=== PATIENT | male | born 1990 | race Caucasian/White ===

== ENCOUNTER 2017-12-16 12:14 | Emergency (ER) | payer SELFPAY, OTHER ==
[2017-12-16] MEDS: diphenhydrAMINE 25 MG CAP PO (14:36)
[2017-12-16] MEDS: ACETAMINOPHEN 325 MG TAB PO (14:36)
== END 2017-12-16 14:48 | disposition home or self-care (01) ==
LOC: M ED 12:14
DX: J02.9 Acute pharyngitis, unspecified (principal)
CPT/HCPCS: 99282

== ENCOUNTER 2017-12-27 19:52 | Emergency (ER) | payer SELFPAY ==
[2017-12-28 00:40] LABS: INFLUENZA A AMPLIFICATION POSITIVE (NEGATIVE); INFLUENZA B AMPLIFICATION NEGATIVE (NEGATIVE)
[2017-12-28] MEDS: OSELTAMIVIR PHOSPHATE 75 MG CAP (TAMIFLU) PO (02:15)
== END 2017-12-28 02:27 | disposition home or self-care (01) ==
LOC: M ED 19:52
DX: J09.X2 Influenza due to identified novel influenza A virus with other respiratory manifestations (principal)
CPT/HCPCS: 87502

== ENCOUNTER 2018-03-11 11:59 | Emergency (ER) | payer OTHER, SELFPAY ==
[2018-03-11] MEDS: GI COCKTAIL 50ML BTL(HYOSCYAMINE/MAALOX/LIDOCAINE VISCOUS)(1:3:1) PO (12:39)
== END 2018-03-11 13:32 | disposition home or self-care (01) ==
LOC: M ED 11:59
DX: K21.9 Gastro-esophageal reflux disease without esophagitis (principal)
CPT/HCPCS: 99283

== ENCOUNTER 2018-07-24 18:22 | Emergency (ER) | payer OTHER ==
[2018-07-24] MEDS: ONDANSETRON 4MG/2ML VIAL (J2405) IV (19:45)
[2018-07-24] MEDS: NS 1,000 ML IV (19:46)
[2018-07-24 20:05] LABS: BASO # 0.1 10^3/uL (0.0-0.2); BASO % 0.6 % (0.0-1.0); EOS # 0.3 10^3/uL (0.0-0.50); EOS % 3.2 % (0.0-3.0); HEMOGLOBIN 16.4 g/dl (13.5-17.5); IMMATURE GRANULOCYTE % 0.3 % (0-3.0); LYMPH # 3.2 10^3/uL (1.5-6.5); LYMPH % 33.6 % (24.0-44.0); MEAN CORPUSCULAR HEMOGLOBIN 31.7 pg (27.0-33.0); MEAN CORPUSCULAR HGB CONC 34.9 g/dl (32.0-36.5); MEAN CORPUSCULAR VOLUME 90.9 fl (80.0-96.0); MONO # 0.7 10^3/uL (0.0-0.8); MONO % 6.9 % (0.0-5.0); NEUTROPHILS # 5.2 10^3/uL (1.8-7.7); NEUTROPHILS % 55.4 % (36.0-66.0); PLATELET COUNT, AUTOMATED 251 10^3/uL (150-450); RED BLOOD COUNT 5.17 10^6/uL (4.30-6.10); WHITE BLOOD COUNT 9.4 10^3/uL (4.0-10.0)
[2018-07-24 20:11] LABS: AMORPHOUS SEDIMENT RFX SMALL (NEGATIVE); KETONE, URINE AUTO RFX NEGATIVE (NEGATIVE); LEUKOCYTE ESTERASE UR AUTO RFX NEGATIVE (NEGATIVE); MUCUS, URINE RFX SMALL (NEGATIVE); NITRITE, URINE AUTO RFX NEGATIVE (NEGATIVE); RBC, URINE AUTO RFX 3 /HPF (0-3); SPECIFIC GRAVITY UR AUTO RFX 1.024 (1.002-1.035); SQUAM EPITHELIAL CELL UR AURFX 0 /HPF (0-6); WBC, URINE AUTO RFX 0 /HPF (0-3)
[2018-07-24 20:35] LABS: ALBUMIN/GLOBULIN RATIO 1.18 (1.00-1.93); ALKALINE PHOSPHATASE 68 U/L (45-117); ALT/SGPT 62 U/L (12-78); AMYLASE 68 U/L (25-115); ANION GAP 6 MEQ/L (8-16); AST/SGOT 27 U/L (7-37); BILIRUBIN,DIRECT < 0.1 MG/DL (0.0-0.2); BILIRUBIN,TOTAL 0.4 MG/DL (0.2-1.0); BLOOD UREA NITROGEN 16 MG/DL (7-18); CALCIUM LEVEL 9.2 MG/DL (8.5-10.1); CARBON DIOXIDE LEVEL 30 MEQ/L (21-32); CHLORIDE LEVEL 107 MEQ/L (98-107); GLOMERULAR FILTRATION RATE > 60.0 (>60); GLUCOSE, FASTING 77 MG/DL (70-100); LIPASE 129 U/L (73-393); POTASSIUM SERUM 4.2 MEQ/L (3.5-5.1); SODIUM LEVEL 143 MEQ/L (136-145); TOTAL PROTEIN 7.4 GM/DL (6.4-8.2)
== END 2018-07-24 20:55 | disposition home or self-care (01) ==
LOC: M ED 18:22
DX: R11.2 Nausea with vomiting, unspecified (principal); R19.7 Diarrhea, unspecified
CPT/HCPCS: J2405

== ENCOUNTER 2018-09-05 09:28 | Emergency (ER) | payer OTHER | END 2018-09-05 10:55 | disposition home or self-care (01) | LOC: M ED 09:28 | DX: J02.0 Streptococcal pharyngitis (principal); K21.9 Gastro-esophageal reflux disease without esophagitis | CPT/HCPCS: 71046 ==

== ENCOUNTER 2020-01-14 11:42 | Emergency (ER) | payer OTHER ==
[~2020-01-14] VITALS: Ht 177.8 cm; Wt 124.1 kg
[2020-01-14 11:42] VITALS: BP 136/79
[~2020-01-14 11:42] MED LIST: AMOX500C PO; BENT10CA PO; OMEP40CA97 PO; OSEL75CA PO; ZOFR4TAB14 PO
== END 2020-01-14 12:41 | disposition home or self-care (01) ==
LOC: M ED 11:42
DX: J06.9 Acute upper respiratory infection, unspecified (principal); K21.9 Gastro-esophageal reflux disease without esophagitis

== ENCOUNTER 2020-07-21 16:55 | Emergency (ER) | payer OTHER ==
[~2020-07-21] VITALS: Ht 180.3 cm; Wt 134.5 kg
[2020-07-21 16:56] VITALS: BP 129/78
== END 2020-07-21 18:42 | disposition home or self-care (01) ==
LOC: M ED 16:55
DX: Z11.59 Encounter for screening for other viral diseases (principal); J34.89 Other specified disorders of nose and nasal sinuses; R19.7 Diarrhea, unspecified; E66.9 Obesity, unspecified; K21.9 Gastro-esophageal reflux disease without esophagitis
CPT/HCPCS: 99282; U0002

== ENCOUNTER 2020-10-07 13:53 | Emergency (ER) | payer OTHER ==
[~2020-10-07] VITALS: Ht 180.3 cm; Wt 136.4 kg
[2020-10-07 13:53] VITALS: BP 130/83
== END 2020-10-07 23:44 | disposition home or self-care (01) ==
LOC: M ED 13:53
DX: J06.9 Acute upper respiratory infection, unspecified (principal)

== ENCOUNTER 2020-11-18 15:47 | Emergency (ER) | payer OTHER ==
[~2020-11-18] VITALS: Ht 180.3 cm; Wt 140.6 kg
[2020-11-18 19:38] VITALS: BP 127/68
== END 2020-11-18 19:41 | disposition home or self-care (01) ==
LOC: M ED 15:47
DX: R09.82 Postnasal drip (principal); K21.9 Gastro-esophageal reflux disease without esophagitis

== ENCOUNTER 2021-01-14 16:30 | Emergency (ER) | payer OTHER ==
[~2021-01-14] VITALS: Ht 180.3 cm; Wt 145.7 kg
--- OUTSIDE RECORDS SUMMARY | 2021-01-14 16:37 | CCD ---
Author Author Jostin Stephensneelle Organization Unknown Address [address] [address] Phone Care Team Providers Care Knife Grinder Name Role Phone Colin Stephens PCP Allergies, Adverse Reactions, Alerts No Data in Section Problem List Concept Problem Description Status Start Date Created Date Resolv ed Date Snomed Code F43.9 Unspecified Trauma- and Stressor-Related Disorder Acti ve 09/20/2019 09/20/2019 F33.1 Major Depressive Disorder, Recurrent episode, Moderate Active 12/27/2020 F12.19 Cannabis abuse with unspecified cannabis-induced disor nerissa Active 12/27/2020 F10.188 Alcohol abuse with other alcohol-induced disorder Active 12/27/2020 Medications No Data in Section Social History Social History Element Description Concept Effective Date Smoking Status Unknown if ever smoked [id number] Immunizations No Data in Section Vital Signs No Data in Section Procedures Date Concept Id Description Targeted Site Concept Targeted Site Concept Type 12/27/2020 94225 Extended Individual Psychotherapy - 45 min CPT Patient has no history of implantable de vices Encounters Encounter Start Date End Date Encounter Type Description Diagnosis Di agnosis Desc Location Author First Name Author Last Name Npid Taxonomy Cod e Taxonomy Desc Phone Number Location Addr1 Location Addr2 Location [facility] Location [facility] [id number] 12/27/2020 12/27/2020 73172 Extended Individual Psych otherapy - 45 min F43.9 Reaction to severe stress, unspecified [facility] [phone] [id number] Art Therapist [phone] [address] [address] Plan of Treatment No Data in Section Lab Results No Data in Section Instructions No Data in Section Insurance Providers Insurance Id Policy Effective Date Policy Thru Date Company N [employer] [id number] 2019 DUNCAN - MEDICA ID MANAGED
--- OUTSIDE RECORDS SUMMARY | 2021-01-14 16:38 | CCD ---
Author Author [facility] Organization [facility] Address Unknown Phone Unavailable Care Team Providers Care Cash Accounting Clerk Name Role Phone [facility] Un[facility] Unavailable Colin Stephens Unavailable EGORHO, F CAREY FPMHNP Unavailable Unavailable EGORHO, F CAREY FPMHNP Unavailable Unavailable EGORHO, F CAREY FPMHNP Unavailable Unavailable EGORHO, F CAREY FPMHNP Unavailable Unavailable EGORHO, F CAREY FPMHNP Unavailable Unavailable EGORHO, F CAREY FPMHNP Unavailable Unavailable Re-disclosure Warning The records that you are about to access may contain information from federally-assisted alcohol or drug abuse programs. If such information is present, then the following federally mandated warning applies: This information has been disclosed to you from records protected by federal confidentiality rules (42 CFR part 2). The federal rules prohibit you from making any further disclosure of this information unless further disclosure is expressly permitted by the written consent of the person to whom it pertains or as otherwise permitted by 42 CFR part 2. A general authorization for the release of medical or other information is NOT sufficient for this purpose. The Federal rules restrict any use of the information to criminally investigate or prosecute any alcohol or drug abuse patient.The records that you are about to access may contain highly sensitive health information, the redisclosure of which is protected by Article 27-F of the [facility] Public Health law. If you continue you may have access to information: Regarding HIV / AIDS; Provided by facilities licensed or operated by the [facility] Office of Mental Health; or Provided by the [facility] Office for People With Developmental Disabilities. If such information is present, then the following [facility] mandated warning applies: This information has been disclosed to you from confidential records which are protected by state law. State law prohibits you from making any further disclosure of this information without the specific written consent of the person to whom it pertains, or as otherwise permitted by law. Any unauthorized further disclosure in violation of state law may result in a fine or prison sentence or both. A general authorization for the release of medical or other information is NOT sufficient authorization for further disc losure. Encounters Encounter Providers Location Date Indications Data Source(s ) Extended Individual Psychotherapy - 45 min Attender: [facility] 12/27/2020 02:30:00 AM EST - 12/27/2020 02:30:00 AM EST [facility] ([facility]) Attender: Colin Stephens 12/27/2020 12:00:00 AM EST [facility] ([facility]) Extended Individual Psychotherapy - 45 min Attender: [facility] 11/01/2020 05:00:00 AM EST - 11/01/2020 05:00:00 AM EST [facility] ([facility]) Attender: Mihirscelle Stephens 11/01/2020 12:00:00 AM EST [facility] ([facility]) Extended Individual Psychotherapy - 45 min Attender: [facility] 09/20/2020 10:00:00 AM EDT - 09/20/2020 10:00:00 AM EDT [facility] ([facility]) Attender: Colin Stephens 09/20/2020 12:00:00 AM EDT [facility] ([facility]) Psychiatric Diagnostic Evaluation with Medical Service s [facility] 09/06/2020 03:00:00 AM EDT - 09/06/2020 03:00:00 AM EDT [facility] ([facility]) Attender: CAREY [facility] 09/06/2020 12:00: 00 AM EDT [facility] ([facility]) Extended Individual Psychotherapy - 45 min Attender: [facility] 08/23/2020 02:00:00 AM EDT - 08/23/2020 02:00:00 AM EDT [facility] ([facility]) Attender: Monet Kat 08/23/2020 12:00:00 AM EDT [facility] ([facility]) Attender: Monet Kat 08/08/2020 12:00:00 AM EDT [facility] ([facility]) Extended Individual Psychotherapy - 45 min Attender: [facility] 08/07/2020 01:45:00 AM EDT - 08/07/2020 01:45:00 AM EDT [facility] ([facility]) TEMPMHCTelemed 30" [facility] 05:30:00 AM EDT - 07/23/2020 05:30:00 AM EDT [facility] ([facility]) Attender: Colin Stephens 07/23/2020 12:00:00 AM EDT [facility] ([facility]) Outpatient Attender: RENUKA [facility] 07/08/2020 03:09:00 PM EDT [facility] [id number]"[facility] 05:00:00 AM EDT - 04/23/2020 05:00:00 AM EDT [facility] ([facility]) Attender: Colin Stephens 04/23/2020 12:00:00 AM EDT [facility] ([facility]) [id number]"Psychotherapy [facility] 04/12/2020 10:15:00 AM EDT - 04/12/2020 10:15:00 AM EDT [facility] ([facility]) [facility] 04/12/2020 12:00:00 AM EDT [facility] ([facility]) TEMPMHCTelemed 30" [facility]2020 04:00:00 AM EDT - 03/19/2020 04:00:00 AM EDT [facility] ([facility] 12:00:00 AM EDT [facility] ([facility]) TEMPMHCTelemed 30" [facility]/18/2020 12:30:00 PM EDT - 03/18/2020 12:30:00 PM EDT [facility] ([facility] 03/18/2020 12:00:00 AM EDT [facility] ([facility]) TEMPMHCTelemed 30" Psych[facility]/04/2020 03:00:00 AM EDT - 03/04/2020 03:00:00 AM EDT [facility] ([facility] 03/04/2020 12:00:00 AM EDT [facility] ([facility]) Outpatient Att[facility]: [facility] 02/20/2020 12:49:01 PM EDT [facility] [id number]"Psychotherapy [facility] 02/16/2020 02:00:00 AM EDT - 02/16/2020 02:00:00 AM EDT [facility] ([facility]) Attender: Colin Stephens 02/16/2020 12:00:00 AM EDT [facility] ([facility]) Extended Individual Psychotherapy - 45 min [facility] 01/25/2020 08:30:00 AM EST - 01/25/2020 08:30:00 AM EST [facility] ([facility]) Attender: Colin Stephens 01/25/2020 12:00:00 AM EST [facility] ([facility]) Extended Individual Psychotherapy - 45 min [facility] 01/10/2020 02:45:00 AM EST - 01/10/2020 02:45:00 AM EST [facility] ([facility]) Attender: Mihirscelle Stephens 01/10/2020 12:00:00 AM EST [facility] ([facility]) Extended Individual Psychotherapy - 45 min [facility] 12/27/2019 09:00:00 AM EST - 12/27/2019 09:00:00 AM EST [facility] ([facility]) Attender: Colin Stephens 12/27/2019 12:00:00 AM EST [facility] ([facility]) Outpatient Attender: [facility] 12/05/2019 11:08:00 AM EST [facility] Functional Status Insurance Providers Payer name Policy type / Coverage type Policy ID Covered alliance party ID Covered alliance party's relationship to lu Policy Lu Plan Information DUNCAN [id number] SP [id number] [place] [id number] S [id number] MEDICAID [id number] SP [id number] SELF PAY ONLY [id number] SP [id number] SELF PAY UNAVAILABLE SP UNAVAILA BLE D Managed Care [place] P [id number] S [id number] Medicaid Dental S [id number] DUNCAN [id number] 18 [id number] 500 MEDICAID [id number] MEDICAID [id number] SELF-PAY [id number] S [id number] BLUE CROSS SNYDER PLAN [id number] SP [id number] O BLUE [id number] SP [id number] Problems, Conditions, and Diagnoses Code Display Name Description Problem Type Effective Dates Data Source(s) F10.188 Alcohol abuse with other alcohol-induced disorder Alcohol abuse with other alcohol-induced disorder Condition 12/27/2020 12:00:00 AM EST [facility] ([facility]) F12.19 Cannabis abuse with unspecified cannabis -induced disorder Cannabis abuse with unspecified cannabis-induced disorder Condition 12/27/2020 12:00: 00 AM EST [facility] ([facility]) F33.1 Major depressive disorder, recurrent, mo derate Major Depressive Disorder, Recurrent episode, Moderate Condition 12/27/2020 12:00:00 AM EST [facility] ([facility]) F43.9 Reaction to severe stress, unspecified U nspecified Trauma- and Stressor- Related Disorder Condition 12/27/2020 12:00:00 AM EST [facility] ([facility]) F41.1 Generalized anxiety disorder Generalized Anxiety Disor nerissa Condition 08/23/2020 12:00:00 AM EDT [facility] ([facility]) F43.9 Reaction to severe stress, unspecified U nspecified Trauma- and Stressor- Related Disorder Condition 08/23/2020 12:00:00 AM EDT [facility] ([facility]) F41.9 Anxiety disorder, unspecified Unspecified Anxiety Diso rder Condition 08/23/2020 12:00:00 AM EDT [facility] ([facility]) Surgeries/Procedures Procedure Description Date Indications Data Source(s) Extended Individual Psychotherapy - 45 min 12/27/2020 12:00:00 AM EST - 12/27/2020 12:00:00 AM EST [facility] ([facility]) Extended Individual Psychotherapy - 45 min 1 12:00:00 AM EST [facility] ([facility]) Extended Individual Psychotherapy - 45 min 11/01/2020 12:00:00 AM EST - 11/01/2020 12:00:00 AM EST [facility] ([facility]) Extended Individual Psychotherapy - 45 min 0 12:00:00 AM EST [facility] ([facility]) Extended Individual Psychotherapy - 45 min 09/20/2020 12:00:00 AM EDT - 09/20/2020 12:00:00 AM EDT [facility] ([facility]) Extended Individual Psychotherapy - 45 min 0 12:00:00 AM EDT [facility] ([facility]) Psychiatric Diagnostic Evaluation with Medical Services 09/06/2020 12:00:00 AM EDT - 09/06/2020 12:00:00 AM EDT [facility] ([facility]) Psychiatric Diagnostic Evaluation with Medical Services 09/06/2020 12:00:00 AM EDT [facility] ([facility]) Extended Individual Psychotherapy - 45 min 08/23/2020 12:00:00 AM EDT - 08/23/2020 12:00:00 AM EDT [facility] ([facility]) Extended Individual Psychotherapy - 45 min 0 12:00:00 AM EDT [facility] ([facility]) Extended Individual Psychotherapy - 45 min 08/08/2020 12:00:00 AM EDT - 08/08/2020 12:00:00 AM EDT [facility] ([facility]) Extended Individual Psychotherapy - 45 min 0 12:00:00 AM EDT [facility] ([facility]) TEMPMHCTelemed 30" Psychotherapy 020 12:00:00 AM EDT - 07/23/2020 12:00:00 AM EDT [facility] ([facility]) TEMPMHCTelemed 30" Psychotherapy 07/23/2020 12:00:00 A M EDT [facility] ([facility]) [id number]"Psychotherapy 0 12:00:00 AM EDT - 04/23/2020 12:00:00 AM EDT [facility] ([facility]) [id number]"Psychotherapy 04/23/2020 12:00:00 AM EDT [facility] ([facility]) [id number]"Psychotherapy 0 12:00:00 AM EDT - 04/12/2020 12:00:00 AM EDT [facility] ([facility]) [id number]"Psychotherapy 04/12/2020 12:00:00 AM EDT [facility] ([facility]) TEMPMHCTelemed 30" Psychotherapy 020 12:00:00 AM EDT - 03/19/2020 12:00:00 AM EDT [facility] ([facility]) TEMPMHCTelemed 30" Psychotherapy 03/19/2020 12:00:00 A M EDT [facility] ([facility]) TEMPMHCTelemed 30" Psychotherapy 020 12:00:00 AM EDT - 03/18/2020 12:00:00 AM EDT [facility] ([facility]) TEMPMHCTelemed 30" Psychotherapy 03/18/2020 12:00:00 A M EDT [facility] ([facility]) TEMPMHCTelemed 30" Psychotherapy 020 12:00:00 AM EDT - 03/04/2020 12:00:00 AM EDT [facility] ([facility]) TEMPMHCTelemed 30" Psychotherapy 03/04/2020 12:00:00 A M EDT [facility] ([facility]) [id number]"Psychotherapy 0 12:00:00 AM EDT - 02/16/2020 12:00:00 AM EDT [facility] ([facility]) [id number]"Psychotherapy 02/16/2020 12:00:00 AM EDT [facility] ([facility]) Extended Individual Psychotherapy - 45 min 01/25/2020 12:00:00 AM EST - 01/25/2020 12:00:00 AM EST [facility] ([facility]) Extended Individual Psychotherapy - 45 min 0 12:00:00 AM EST [facility] ([facility]) Extended Individual Psychotherapy - 45 min 01/10/2020 12:00:00 AM EST - 01/10/2020 12:00:00 AM EST [facility] ([facility]) Extended Individual Psychotherapy - 45 min 0 12:00:00 AM EST [facility] ([facility]) Extended Individual Psychotherapy - 45 min 12/27/2019 12:00:00 AM EST - 12/27/2019 12:00:00 AM EST [facility] ([facility]) Extended Individual Psychotherapy - 45 min 0 12:00:00 AM EST [facility] ([facility]) Social History Code Duration Value Status Description Data Source(s ) Smoking 12/27/2020 12:00:00 AM EST Unknown if ever smoked comp leted Unknown if ever smoked [facility] ([facility]) Smoking 11/01/2020 12:00:00 AM EST Unknown if ever smoked comp leted Unknown if ever smoked [facility] ([facility]) Smoking 09/20/2020 12:00:00 AM EDT Unknown if ever smoked comp leted Unknown if ever smoked [facility] ([facility]) Smoking 09/06/2020 12:00:00 AM EDT Unknown if ever smoked comp leted Unknown if ever smoked [facility] ([facility]) Smoking 08/23/2020 12:00:00 AM EDT Unknown if ever smoked comp leted Unknown if ever smoked [facility] ([facility]) Smoking 08/08/2020 12:00:00 AM EDT Unknown if ever smoked comp leted Unknown if ever smoked [facility] ([facility]) Smoking 07/23/2020 12:00:00 AM EDT Unknown if ever smoked comp leted Unknown if ever smoked [facility] ([facility]) Smoking 04/23/2020 12:00:00 AM EDT Unknown if ever smoked comp leted Unknown if ever smoked [facility] ([facility]) Smoking 04/12/2020 12:00:00 AM EDT Unknown if ever smoked comp leted Unknown if ever smoked [facility] ([facility]) Smoking 03/19/2020 12:00:00 AM EDT Unknown if ever smoked comp leted Unknown if ever smoked [facility] ([facility]) Smoking 03/18/2020 12:00:00 AM EDT Unknown if ever smoked comp leted Unknown if ever smoked [facility] ([facility]) Smoking 03/04/2020 12:00:00 AM EDT Unknown if ever smoked comp leted Unknown if ever smoked [facility] ([facility]) Smoking 02/16/2020 12:00:00 AM EDT Unknown if ever smoked comp leted Unknown if ever smoked [facility] ([facility]) Smoking 01/25/2020 12:00:00 AM EST Unknown if ever smoked comp leted Unknown if ever smoked [facility] ([facility]) Smoking 01/10/2020 12:00:00 AM EST Unknown if ever smoked comp leted Unknown if ever smoked [facility] ([facility]) Smoking 12/27/2019 12:00:00 AM EST Unknown if ever smoked comp leted Unknown if ever smoked [facility] ([facility]) Vital Signs ID Date Data Source UNK Name Value Range Interpretation Code Description Data Source(s) Respiratory rate 14 min Normal (applies to non-numeric results) 14 min [facility] ([facility]) Body height --lying 69 min Normal (applies to non-nume raeann results) 69 min [facility] ([facility]) Diastolic blood pressure 69 mm[Hg] Normal (applies to non-numeric results) 69 mm[Hg] [facility] ([facility]) Systolic blood pressure 117 mm[Hg] Normal (applies t o non-numeric results) 117 mm[Hg] [facility] ([facility]) Body mass index (BMI) [Ratio] 39.60 kg/m2 No rmal (applies to non-numeric results) 39.60 kg/m2 [facility] ([facility]) Body weight Measured 276.00 lbs Normal (applies to n on-numeric results) 276.00 lbs [facility] ([facility]) Body height 70.00 in Normal (applies to non-numeric resu lts) 70.00 in [facility]
[2021-01-14] MEDS: ALBUTEROL 90 MCG/ACT 8GM HFA INHALER INH SCH ×3 (17:10→17:48)
--- NOTE | 2021-01-14 17:34 | REP ---
INDICATION: DYSPNEA/COUGH. COMPARISON: Comparison chest x-ray September 05, 2018. TECHNIQUE: Portable upright AP chest radiograph. FINDINGS: The lungs are well inflated and free of infiltrate. Pleural angles are sharp. Heart size is normal. Pulmonary vasculature is not increased. An azygos lobe is noted incidentally. IMPRESSION: No active disease. <Electronically signed by Washington Payton > 01/14/21 [id number]
--- OUTSIDE RECORDS SUMMARY | 2021-01-14 17:34 | CCD ---
Author Author [facility] Address Unknown Phone Unavailable Care Team Providers Care Bindery Technician Name Role Phone [phone] Un[facility] Unavailable Colin Stephens Unavailable EGORHO, [...] is protected by Article 27-F of the [facility] Public Health law. If you continue you may have access to information: Regarding HIV / AIDS; Provided by facilities licensed or operated by the [facility] Office of Mental Health; or Provided by the [facility] Office for People With Developmental Disabilities. If such information is present, then the following [facility] mandated warning applies: This information has [...] law may result in a fine or custodial sentence or both. A general authorization for the release of medical or other information is NOT sufficient authorization for further disc losure. Encounters Encounter Providers Location Date Indications Data Source(s ) Extended Individual Psychotherapy - 45 min Attender: [facility] 12/27/2020 02:30:00 AM EST - 12/27/2020 02:30:00 AM EST [facility] ([facility]) Attender: Colin Stephens 12/27/2020 12:00:00 AM EST [facility] ([facility]) Extended Individual Psychotherapy - 45 min Attender: [facility] 11/01/2020 05:00:00 AM EST - 11/01/2020 05:00:00 AM EST [facility] ([facility]) Attender: Mihirmoelle Stephens 11/01/2020 12:00:00 AM EST [facility] ([facility]) Extended Individual Psychotherapy - 45 min Attender: [facility] 09/20/2020 10:00:00 AM EDT - 09/20/2020 10:00:00 AM EDT [facility] ([facility]) Attender: Colin Stephens 09/20/2020 12:00:00 AM EDT [facility] ([facility]) Psychiatric Diagnostic Evaluation with Medical Service s [facility] 03:00:00 AM EDT - 09/06/2020 03:00:00 AM EDT [facility] ([facility]) [facility] 12:00: 00 AM EDT [facility] ([facility]) [facility] - [facility] 02:00:00 AM EDT - 08/23/2020 02:00:00 AM EDT [facility] 12:00:00 AM EDT [facility]) Attender: Monet aKt 08/08/2020 12:00:00 AM EDT [facility] ([facility]) Extended Individual Psychotherapy - 45 min Attender: [facility] 08/07/2020 01:45:00 AM EDT - 08/07/2020 01:45:00 AM EDT [facility] ([facility]) TEMPMHCTelemed 30" [facility] 07/[facility]/2020 05:30:00 AM EDT - 07/23/2020 05:30:00 AM EDT [facility] ([facility]) Attender: Monet Kat 07/23/2020 12:00:00 AM EDT [facility] ([facility]) Outpatient Attender: RENUKA [facility] 07/08/2020 03:09:[address] [facility] [id number]"Psych[facility] 05:00:00 AM EDT - 04/23/2020 05:00:00 AM EDT [facility] ([facility]) Attender: Colin Stephens 04/23/2020 12:00:00 AM EDT [facility] ([facility]) [id number]"[facility] 04/12/2020 10:15:00 AM EDT - 04/12/2020 10:15:00 AM EDT [facility] ([facility]) [facility] 04/12/2020 12:00:00 AM EDT [facility] ([facility]) TEMPMHCTelemed 30" Psych[facility] 03/19/2020 04:00:00 AM EDT - 03/19/2020 04:00:00 AM EDT [facility] 12:00:00 AM EDT [facility] ([facility]) TEMPMHCTelemed 30" [facility] 03/18/2020 12:30:00 PM EDT - 03/18/2020 12:30:00 PM EDT [facility] ([facility] 03/18/2020 12:00:00 AM EDT [facility] ([facility]) TEMPMHCTelemed 30" Psych[facility] 03/04/2020 03:00:00 AM EDT - 03/04/2020 03:00:00 AM EDT [facility] ([facility] 03/04/2020 12:00:00 AM EDT [facility] ([facility]) [facility] 02/20/[facility] 12:49:[address] [facility] [id number]"Psychotherapy [facility] 02/16/2020 02:00:00 AM EDT - 02/16/2020 02:00:00 AM EDT [facility] ([facility]) Attender: Colin Stephens 02/16/2020 12:00:00 AM EDT [facility] ([facility]) Extended Individual Psychotherapy - 45 min [facility] 01/25/2020 08:30:00 AM EST - 01/25/2020 08:30:00 AM EST [facility] ([facility]) Attender: Colin Stephens 01/25/2020 12:00:00 AM EST [facility] ([facility]) Extended Individual Psychotherapy - 45 min [facility] 01/10/2020 02:45:00 AM EST - 01/10/2020 02:45:00 AM EST [facility] 01/10/2020 12:00:00 AM EST [facility] ([facility]) Extended Individual Psychotherapy - 45 min [facility] 12/27/2019 09:00:00 AM EST - 12/27/2019 09:00:00 AM EST [facility] ([facility]) Attender: Colin Stephens 12/27/2019 12:00:00 AM EST [facility] ([facility]) Outpatient Attender: RENUKA [facility] 12/05/2019 11:08:[address] [facility] Functional Status Insurance Providers Payer name Policy type / Coverage type Policy ID Covered constitution party ID Covered constitution party's relationship to lu Policy Lu Plan Information FAHEEM [id number] SP [id number] [place] [id number] S [id number] MEDICAID [id number] SP [id number] SELF PAY ONLY [id number] SP [id number] SELF PAY UNAVAILABLE SP UNAVAILA BLE D Managed Care Faheem P [id number] S [id number] Medicaid Dental S [id number] S [id number] FAHEEM [id number] 18 [id number] MEDICAID [id number] S [id number] MEDICAID [id number] S [id number] SELF-PAY [id number] S [id number] [employer] [id number] SP [id number] O BLUE [id number] SP [id number] Problems, Conditions, and Diagnoses Code Display Name Description Problem Type Effective Dates Data Source(s) F10.188 Alcohol abuse with other alcohol-induced disorder Alcohol abuse with other alcohol-induced disorder Condition 12/27/2020 12:00:00 AM EST [facility] ([facility]) F12.19 Cannabis abuse with unspecified cannabis -induced disorder Cannabis abuse with unspecified cannabis-induced disorder Condition 12/27/2020 12:00: 00 AM EST [facility] ([facility]) F33.1 Major depressive disorder, recurrent, mo derate Major Depressive Disorder, Recurrent episode, Moderate Condition 12/27/2020 12:00:00 AM EST [facility] ([facility]) F43.9 Reaction to severe stress, unspecified U nspecified Trauma- and Stressor- Related Disorder Condition 12/27/2020 12:00:00 AM EST [facility] ([facility]) F41.1 Generalized anxiety disorder Generalized Anxiety Disor nerissa Condition 08/23/2020 12:00:00 AM EDT [facility] ([facility]) F43.9 Reaction to severe stress, unspecified U nspecified Trauma- and Stressor- Related Disorder Condition 08/23/2020 12:00:00 AM EDT [facility] ([facility]) F41.9 Anxiety disorder, unspecified Unspecified Anxiety Diso rder Condition 08/23/2020 12:00:00 AM EDT [facility] ([facility]) Surgeries/Procedures Procedure Description Date Indications Data Source(s) Extended Individual Psychotherapy - 45 min 12/27/2020 12:00:00 AM EST - 12/27/2020 12:00:00 AM EST [facility] ([facility]) Extended Individual Psychotherapy - 45 min 1 12:00:00 AM EST [facility] ([facility]) Extended Individual Psychotherapy - 45 min 11/01/2020 12:00:00 AM EST - 11/01/2020 12:00:00 AM EST [facility] ([facility]) Extended Individual Psychotherapy - 45 min 0 12:00:00 AM EST [facility] ([facility]) Extended Individual Psychotherapy - 45 min 09/20/2020 12:00:00 AM EDT - 09/20/2020 12:00:00 AM EDT [facility] ([facility]) Extended Individual Psychotherapy - 45 min 0 12:00:00 AM EDT [facility] ([facility]) Psychiatric Diagnostic Evaluation with Medical Services 09/06/2020 12:00:00 AM EDT - 09/06/2020 12:00:00 AM EDT [facility] ([facility]) Psychiatric Diagnostic Evaluation with Medical Services 09/06/2020 12:00:00 AM EDT [facility] ([facility]) Extended Individual Psychotherapy - 45 min 08/23/2020 12:00:00 AM EDT - 08/23/2020 12:00:00 AM EDT [facility] ([facility]) Extended Individual Psychotherapy - 45 min 0 12:00:00 AM EDT [facility] ([facility]) Extended Individual Psychotherapy - 45 min 08/08/2020 12:00:00 AM EDT - 08/08/2020 12:00:00 AM EDT [facility] ([facility]) Extended Individual Psychotherapy - 45 min 0 12:00:00 AM EDT [facility] ([facility]) TEMPMHCTelemed 30" Psychotherapy 020 12:00:00 AM EDT - 07/23/2020 12:00:00 AM EDT [facility] ([facility]) TEMPMHCTelemed 30" Psychotherapy 07/23/2020 12:00:00 A M EDT [facility] ([facility]) [id number]"Psychotherapy 0 12:00:00 AM EDT - 04/23/2020 12:00:00 AM EDT [facility] ([facility]) [id number]"Psychotherapy 04/23/2020 12:00:00 AM EDT [facility] ([facility]) [id number]"Psychotherapy 0 12:00:00 AM EDT - 04/12/2020 12:00:00 AM EDT [facility] ([facility]) [id number]"Psychotherapy 04/12/2020 12:00:00 AM EDT [facility] ([facility]) TEMPMHCTelemed 30" Psychotherapy 020 12:00:00 AM EDT - 03/19/2020 12:00:00 AM EDT [facility] ([facility]) TEMPMHCTelemed 30" Psychotherapy 03/19/2020 12:00:00 A M EDT [facility] ([facility]) TEMPMHCTelemed 30" Psychotherapy 020 12:00:00 AM EDT - 03/18/2020 12:00:00 AM EDT [facility] ([facility]) TEMPMHCTelemed 30" Psychotherapy 03/18/2020 12:00:00 A M EDT [facility] ([facility]) TEMPMHCTelemed 30" Psychotherapy 020 12:00:00 AM EDT - 03/04/2020 12:00:00 AM EDT [facility] ([facility]) TEMPMHCTelemed 30" Psychotherapy 03/04/2020 12:00:00 A M EDT [facility] ([facility]) [id number]"Psychotherapy 0 12:00:00 AM EDT - 02/16/2020 12:00:00 AM EDT [facility] ([facility]) [id number]"Psychotherapy 02/16/2020 12:00:00 AM EDT [facility] ([facility]) Extended Individual Psychotherapy - 45 min 01/25/2020 12:00:00 AM EST - 01/25/2020 12:00:00 AM EST [facility] ([facility]) Extended Individual Psychotherapy - 45 min 0 12:00:00 AM EST [facility] ([facility]) Extended Individual Psychotherapy - 45 min 01/10/2020 12:00:00 AM EST - 01/10/2020 12:00:00 AM EST [facility] ([facility]) Extended Individual Psychotherapy - 45 min 0 12:00:00 AM EST [facility] ([facility]) Extended Individual Psychotherapy - 45 min 12/27/2019 12:00:00 AM EST - 12/27/2019 12:00:00 AM EST [facility] ([facility]) Extended Individual Psychotherapy - 45 min 0 12:00:00 AM EST [facility] ([facility]) Social History Code Duration Value Status Description Data Source(s ) Smoking 12/27/2020 12:00:00 AM EST Unknown if ever smoked comp leted Unknown if ever smoked [facility] ([facility]) Smoking 11/01/2020 12:00:00 AM EST Unknown if ever smoked comp leted Unknown if ever smoked [facility] ([facility]) Smoking 09/20/2020 12:00:00 AM EDT Unknown if ever smoked comp leted Unknown if ever smoked [facility] ([facility]) Smoking 09/06/2020 12:00:00 AM EDT Unknown if ever smoked comp leted Unknown if ever smoked [facility] ([facility]) Smoking 08/23/2020 12:00:00 AM EDT Unknown if ever smoked comp leted Unknown if ever smoked [facility] ([facility]) Smoking 08/08/2020 12:00:00 AM EDT Unknown if ever smoked comp leted Unknown if ever smoked [facility] ([facility]) Smoking 07/23/2020 12:00:00 AM EDT Unknown if ever smoked comp leted Unknown if ever smoked [facility] ([facility]) Smoking 04/23/2020 12:00:00 AM EDT Unknown if ever smoked comp leted Unknown if ever smoked [facility] ([facility]) Smoking 04/12/2020 12:00:00 AM EDT Unknown if ever smoked comp leted Unknown if ever smoked [facility] ([facility]) Smoking 03/19/2020 12:00:00 AM EDT Unknown if ever smoked comp leted Unknown if ever smoked [facility] ([facility]) Smoking 03/18/2020 12:00:00 AM EDT Unknown if ever smoked comp leted Unknown if ever smoked [facility] ([facility]) Smoking 03/04/2020 12:00:00 AM EDT Unknown if ever smoked comp leted Unknown if ever smoked [facility] ([facility]) Smoking 02/16/2020 12:00:00 AM EDT Unknown if ever smoked comp leted Unknown if ever smoked [facility] ([facility]) Smoking 01/25/2020 12:00:00 AM EST Unknown if ever smoked comp leted Unknown if ever smoked [facility] ([facility]) Smoking 01/10/2020 12:00:00 AM EST Unknown if ever smoked comp leted Unknown if ever smoked [facility] ([facility]) Smoking 12/27/2019 12:00:00 AM EST Unknown if ever smoked comp leted Unknown if ever smoked [facility] ([facility]) Vital Signs ID Date Data Source UNK Name Value Range Interpretation Code Description Data Source(s) Respiratory rate 14 min Normal (applies to non-numeric results) 14 min [facility] ([facility]) Body height --lying 69 min Normal (applies to non-nume raeann results) 69 min [facility] ([facility]) Diastolic blood pressure 69 mm[Hg] Normal (applies to non-numeric results) 69 mm[Hg] [facility] ([facility]) Systolic blood pressure 117 mm[Hg] Normal (applies t o non-numeric results) 117 mm[Hg] [facility] ([facility]) Body mass index (BMI) [Ratio] 39.60 kg/m2 No rmal (applies to non-numeric results) 39.60 kg/m2 [facility] ([facility]) Body weight Measured 276.00 lbs Normal (applies to n on-numeric results) 276.00 lbs [facility] ([facility]) Body height 70.00 in Normal (applies to non-numeric resu lts) 70.00 in [facility]
[2021-01-14 18:06] LABS: BASO % 0.4 % (0.0-1.0); EOS # 0.1 10^3/uL (0.0-0.5); EOS % 1.8 % (0.0-3.0); HEMATOCRIT 52.5 % (42.0-52.0); HEMOGLOBIN 17.3 g/dl (13.5-17.5); LYMPH # 2.7 10^3/uL (1.5-5.0); MEAN CORPUSCULAR HEMOGLOBIN 30.2 pg (27.0-33.0); MEAN CORPUSCULAR VOLUME 91.6 fl (80.0-96.0); MONO # 0.7 10^3/uL (0.0-0.8); MONO % 10.1 % (2.0-8.0); NEUTROPHILS # 3.2 10^3/uL (1.5-8.5); NEUTROPHILS % 47.1 % (36.0-66.0); PLATELET COUNT, AUTOMATED 221 10^3/uL (150-450); RED BLOOD COUNT 5.73 10^6/uL (4.30-6.10); WHITE BLOOD COUNT 6.7 10^3/uL (4.0-10.0)
[2021-01-14 18:30] LABS: ALT/SGPT 92 U/L (12-78); BILIRUBIN,DIRECT 0.2 MG/DL (0.0-0.2); BILIRUBIN,TOTAL 0.7 MG/DL (0.2-1.0); BLOOD UREA NITROGEN 13 MG/DL (7-18); CALCIUM LEVEL 9.1 MG/DL (8.5-10.1); CARBON DIOXIDE LEVEL 30 MEQ/L (21-32); CHLORIDE LEVEL 104 MEQ/L (98-107); GLOMERULAR FILTRATION RATE > 60.0 (>60); GLUCOSE, FASTING 97 MG/DL (70-100); SODIUM LEVEL 139 MEQ/L (136-145); TOTAL PROTEIN 7.6 GM/DL (6.4-8.2)
[2021-01-14] MEDS ORDERED: PROAAER10 INH (19:07)
[2021-01-14 19:23] VITALS: BP 161/96
== END 2021-01-14 19:25 | disposition home or self-care (01) ==
LOC: M ED 16:30
DX: U07.1 COVID-19 (principal)

== ENCOUNTER 2022-03-28 16:01 | Emergency (ER) | payer OTHER ==
[~2022-03-28] VITALS: Ht 180.3 cm; Wt 154.2 kg
[~2022-03-28 16:01] MED LIST changes: +OMEP40CA4 PO; -OMEP40CA97 PO; +PROAAER10 INH
[2022-03-28] MEDS ORDERED: NAPR-885 PO (16:08)
[2022-03-28] MEDS ORDERED: NS 1,000 ML IV ONE (17:35)
[2022-03-28 18:26] LABS: BASO # 0.1 10^3/uL (0.0-0.2); BASO % 0.7 % (0.0-1.0); EOS # 0.3 10^3/uL (0.0-0.5); LYMPH % 35.4 % (24.0-44.0); MEAN CORPUSCULAR HEMOGLOBIN 31.5 pg (27.0-33.0); MEAN CORPUSCULAR HGB CONC 35.4 g/dl (32.0-36.5); MEAN CORPUSCULAR VOLUME 89.1 fl (80.0-96.0); MONO # 0.7 10^3/uL (0.0-0.8); MONO % 8.7 % (2.0-8.0); NEUTROPHILS # 4.4 10^3/uL (1.5-8.5); NEUTROPHILS % 51.8 % (36.0-66.0); PLATELET COUNT, AUTOMATED 255 10^3/uL (150-450); RED BLOOD COUNT 5.39 10^6/uL (4.30-6.10); WHITE BLOOD COUNT 8.5 10^3/uL (4.0-10.0)
[2022-03-28 18:37] VITALS: BP 153/98
[2022-03-28 18:47] LABS: ERYTHROCYTE SEDIMENTATION RATE 2 mm/hr (0-15)
[2022-03-28 18:57] LABS: ALBUMIN 3.8 GM/DL (3.2-5.2); ALT/SGPT 74 U/L (12-78); BILIRUBIN,DIRECT < 0.1 MG/DL (0.0-0.2); BILIRUBIN,TOTAL 0.3 MG/DL (0.2-1.0); BLOOD UREA NITROGEN 13 MG/DL (7-18); CALCIUM LEVEL 9.1 MG/DL (8.5-10.1); CARBON DIOXIDE LEVEL 24 MEQ/L (21-32); CHLORIDE LEVEL 110 MEQ/L (98-107); CREATININE FOR GFR 1.15 MG/DL (0.70-1.30); GLOMERULAR FILTRATION RATE > 60.0 (>60); GLUCOSE, FASTING 95 MG/DL (70-100); LIPASE 75 U/L (73-393); POTASSIUM SERUM 5.3 MEQ/L (3.5-5.1); SODIUM LEVEL 139 MEQ/L (136-145); TOTAL PROTEIN 7.1 GM/DL (6.4-8.2)
== END 2022-03-28 20:04 | disposition home or self-care (01) ==
LOC: M ED 16:01
DX: J06.9 Acute upper respiratory infection, unspecified (principal); B97.81 Human metapneumovirus as the cause of diseases classified elsewhere; R74.01 Elevation of levels of liver transaminase levels; J45.909 Unspecified asthma, uncomplicated

== ENCOUNTER 2022-08-28 22:44 | Emergency (ER) | payer OTHER ==
[~2022-08-28] VITALS: Ht 180.3 cm; Wt 155.8 kg
[~2022-08-28 22:44] MED LIST changes: +NAPR-885 PO
[2022-08-29 01:13] LABS: BASO # 0.1 10^3/uL (0.0-0.2); BASO % 0.6 % (0.0-1.0); EOS # 0.1 10^3/uL (0.0-0.5); EOS % 0.8 % (0.0-3.0); HEMATOCRIT 50.1 % (42.0-52.0); HEMOGLOBIN 17.4 g/dl (13.5-17.5); LYMPH # 2.2 10^3/uL (1.5-5.0); MEAN CORPUSCULAR HEMOGLOBIN 31.2 pg (27.0-33.0); MEAN CORPUSCULAR HGB CONC 34.7 g/dl (32.0-36.5); MEAN CORPUSCULAR VOLUME 89.9 fl (80.0-96.0); MONO # 0.6 10^3/uL (0.0-0.8); MONO % 4.4 % (2.0-8.0); NEUTROPHILS # 9.4 10^3/uL (1.5-8.5); NEUTROPHILS % 75.7 % (36.0-66.0); PLATELET COUNT, AUTOMATED 276 10^3/uL (150-450); RED BLOOD COUNT 5.57 10^6/uL (4.30-6.10); WHITE BLOOD COUNT 12.4 10^3/uL (4.0-10.0)
[2022-08-29] MEDS ORDERED: KETOROLAC 60MG 2ML VIAL IM ONE (02:00)
[2022-08-29] MEDS ORDERED: ONDA4TAB6 PO (02:16)
[2022-08-29 03:25] VITALS: BP 125/87
== END 2022-08-29 03:27 | disposition home or self-care (01) ==
LOC: M ED 22:44
DX: R31.9 Hematuria, unspecified (principal); K76.0 Fatty (change of) liver, not elsewhere classified
CPT/HCPCS: 74176; 80047; 81000; 81015; 85025; 96372; 99283; J1885

== ENCOUNTER → 2023-07-08 | Outpatient (CLI) | payer OTHER ==
[~2023-07-08] MED LIST changes: +ONDA4TAB6 PO
== END ==
LOC: M EKG 16:15
PROVIDERS: ATTEND Nurse Practitioner Psychiatric/Mental Health
DX: F90.2 Attention-deficit hyperactivity disorder, combined type (principal)

== ENCOUNTER → 2024-02-11 | Outpatient (REF) | payer OTHER ==
[2024-02-11 18:17] LABS: BLOOD UREA NITROGEN 12 MG/DL (9-23); GLOMERULAR FILTRATION RATE > 60.0 (>60)
== END ==
LOC: M LABDRWAD 17:17
PROVIDERS: ATTEND Physical Medicine & Rehabilitation
DX: M47.896 Other spondylosis, lumbar region (principal)

== ENCOUNTER → 2024-07-19 | Outpatient (REF) | payer OTHER ==
[~2024-07-19] MED LIST changes: +ONDA-282 PO; -ONDA4TAB6 PO
[2024-07-19 17:33] LABS: THYROID STIMULATING HORMONE 3.227 uIU/ML (0.55-4.78)
[2024-07-19 17:34] LABS: ALBUMIN 3.3 G/DL (3.2-5.2); ALKALINE PHOSPHATASE 95 U/L (46-116); ALT/SGPT 69 U/L (7.0-40); AST/SGOT 25 U/L (<34); BILIRUBIN,TOTAL 0.3 MG/DL (0.3-1.2); BLOOD UREA NITROGEN 7 MG/DL (9-23); CALCIUM LEVEL 8.9 MG/DL (8.5-10.1); CARBON DIOXIDE LEVEL 26 MMOL/L (20-31); CHLORIDE LEVEL 109 MMOL/L (98-107); CHOLESTEROL LEVEL 177 MG/DL (<200); CHOLESTEROL RISK RATIO 4.69 (<5); CREATININE FOR GFR 0.94 MG/DL (0.70-1.30); FREE T4 1.19 NG/DL (0.89-1.76); GLOMERULAR FILTRATION RATE > 60.0 (>60); GLUCOSE, FASTING 120 MG/DL (60-100); HDL CHOLESTEROL 37.7 MG/DL (>40); LDL CHOLESTEROL 115.5 MG/DL (<100); MAGNESIUM LEVEL 1.7 MG/DL (1.8-2.4); NON-HDL-C 139.3 MG/DL; SODIUM LEVEL 141 MMOL/L (136-145); TOTAL PROTEIN 6.2 G/DL (5.7-8.2); TRIGLYCERIDES LEVEL 119 MG/DL (<150)
[2024-07-19 17:43] LABS: HEMOGLOBIN A1c 5.9 % (4.0-6.0)
== END ==
LOC: M LAB REF 16:14
PROVIDERS: ATTEND Nurse Practitioner Family
DX: R60.0 Localized edema (principal); E66.01 Morbid (severe) obesity due to excess calories

== ENCOUNTER → 2024-08-21 | Outpatient (CLI) | payer OTHER | LOC: M RAD 11:33 | PROVIDERS: ATTEND Nurse Practitioner Family | DX: R60.0 Localized edema (principal) ==

== ENCOUNTER → 2024-09-15 | Outpatient (REF) | payer OTHER ==
[2024-09-15 13:07] LABS: BASO # 0.1 10^3/uL (0.0-0.2); BASO % 0.7 % (0.0-1.0); EOS # 0.3 10^3/uL (0.0-0.5); EOS % 2.6 % (0.0-3.0); HEMATOCRIT 47.8 % (42.0-52.0); HEMOGLOBIN 16.6 g/dl (13.5-17.5); LYMPH # 3.3 10^3/uL (1.5-5.0); MEAN CORPUSCULAR HEMOGLOBIN 31.7 pg (27.0-33.0); MEAN CORPUSCULAR HGB CONC 34.7 g/dl (32.0-36.5); MEAN CORPUSCULAR VOLUME 91.2 fl (80.0-96.0); MONO # 0.7 10^3/uL (0.0-0.8); MONO % 6.4 % (2.0-8.0); NEUTROPHILS # 6.2 10^3/uL (1.5-8.5); NEUTROPHILS % 58.6 % (36.0-66.0); PLATELET COUNT, AUTOMATED 228 10^3/uL (150-450); RED BLOOD COUNT 5.24 10^6/uL (4.30-6.10); WHITE BLOOD COUNT 10.6 10^3/uL (4.0-10.0)
== END ==
LOC: M LAB REF 12:11
PROVIDERS: ATTEND Nurse Practitioner Family
DX: R53.83 Other fatigue (principal); E66.9 Obesity, unspecified

== ENCOUNTER 2024-11-23 01:54 | Emergency (ER) | payer OTHER ==
[~2024-11-23] VITALS: Ht 180.3 cm; Wt 193.6 kg
[2024-11-23 07:36] VITALS: BP 139/87; TEMP 99.3; O2SAT 96
[2024-11-23] MEDS ORDERED: MUCI1TAB16 PO (08:08)
[2024-11-23] MEDS ORDERED: AMOX875T2 PO (08:08)
[2024-11-23] MEDS ORDERED: NS3NEB INH (08:18)
== END 2024-11-23 08:19 | disposition home or self-care (01) ==
LOC: M ED 01:54
DX: J06.9 Acute upper respiratory infection, unspecified (principal); H66.93 Otitis media, unspecified, bilateral; K21.9 Gastro-esophageal reflux disease without esophagitis; Z79.899 Other long term (current) drug therapy

== ENCOUNTER → 2024-12-15 | Outpatient (CLI) | payer OTHER ==
[~2024-12-15] MED LIST changes: +AMOX875T2 PO; +MUCI1TAB16 PO; +NS3NEB INH
== END ==
LOC: M WUC 12:57
PROVIDERS: ATTEND Nurse Practitioner Family
DX: J21.9 Acute bronchiolitis, unspecified (principal)

== ENCOUNTER → 2025-02-19 | Outpatient (REF) | payer OTHER ==
[2025-02-19 15:30] LABS: BLOOD UREA NITROGEN 13 MG/DL (9-23); CALCIUM LEVEL 9.4 MG/DL (8.5-10.1); CARBON DIOXIDE LEVEL 26 MMOL/L (20-31); CHLORIDE LEVEL 109 MMOL/L (98-107); GLOMERULAR FILTRATION RATE > 60.0 (>60); GLUCOSE, FASTING 106 MG/DL (60-100); MAGNESIUM LEVEL 1.9 MG/DL (1.8-2.4); POTASSIUM SERUM 4.4 MMOL/L (3.5-5.1); SODIUM LEVEL 141 MMOL/L (136-145)
[2025-02-19 15:32] LABS: VITAMIN B12 LEVEL 338 PG/ML (211-911)
[2025-02-19 15:39] LABS: FOLATE 9.1 NG/ML (>5.4)
== END ==
LOC: M LAB REF 14:14
PROVIDERS: ATTEND Nurse Practitioner Family
DX: Z86.79 Personal history of other diseases of the circulatory system (principal)

== ENCOUNTER → 2025-02-22 | Outpatient (CLI) | payer OTHER | LOC: M RAD 16:16 | PROVIDERS: ATTEND Nurse Practitioner Family | DX: M79.661 Pain in right lower leg (principal) ==

== ENCOUNTER 2025-07-08 17:19 | Emergency (ER) | payer MEDICAID, OTHER, SELFPAY ==
[~2025-07-08] VITALS: Ht 180.3 cm; Wt 210.4 kg
[2025-07-08 18:16] LABS: BASO # 0.1 10^3/uL (0.0-0.2); BASO % 0.6 % (0.0-1.0); EOS # 0.3 10^3/uL (0.0-0.5); EOS % 3.0 % (0.0-3.0); LYMPH # 2.5 10^3/uL (1.5-5.0); LYMPH % 28.1 % (24.0-44.0); MONO # 0.6 10^3/uL (0.0-0.8); MONO % 6.6 % (2.0-8.0); NEUTROPHILS # 5.5 10^3/uL (1.5-8.5); NEUTROPHILS % 61.1 % (36.0-66.0); PLATELET COUNT, AUTOMATED 211 10^3/uL (150-450)
[2025-07-08 18:44] LABS: CALCIUM LEVEL 8.5 MG/DL (8.5-10.1); CARBON DIOXIDE LEVEL 24 MMOL/L (20-31); CHLORIDE LEVEL 103 MMOL/L (98-107); CREATININE FOR GFR 0.70 MG/DL (0.70-1.30); GLOMERULAR FILTRATION RATE > 90.0 (>60); POTASSIUM SERUM 4.0 MMOL/L (3.5-5.1); SODIUM LEVEL 140 MMOL/L (136-145)
[2025-07-08 19:28] VITALS: BP 150/75; TEMP 98.1; O2SAT 95
== END 2025-07-08 22:32 | disposition left against medical advice (07) ==
LOC: M ED 17:19
DX: Z53.21 Procedure and treatment not carried out due to patient leaving prior to being seen by health care provider (principal)

== ENCOUNTER → 2025-10-08 | Outpatient (REF) | payer MEDICAID ==
[2025-10-08 18:02] LABS: PLATELET COUNT, AUTOMATED 217 10^3/uL (150-450)
[2025-10-08 18:09] LABS: ALT/SGPT 47 U/L (7.0-40); AST/SGOT 27 U/L (<34); CALCIUM LEVEL 9.0 MG/DL (8.5-10.1); CARBON DIOXIDE LEVEL 24 MMOL/L (20-31); CHLORIDE LEVEL 100 MMOL/L (98-107); CHOLESTEROL LEVEL 175 MG/DL (<200); CHOLESTEROL RISK RATIO 4.53 (<5); CREATININE FOR GFR 0.64 MG/DL (0.70-1.30); GLOMERULAR FILTRATION RATE > 90.0 (>60); LDL CHOLESTEROL 104.2 MG/DL (<100); NON-HDL-C 136.4 MG/DL; POTASSIUM SERUM 4.4 MMOL/L (3.5-5.1); SODIUM LEVEL 136 MMOL/L (136-145); TRIGLYCERIDES LEVEL 161 MG/DL (<150)
[2025-10-08 18:38] LABS: ESTIMATED AVERAGE GLUCOSE 344.0 MG/DL (60-110)
== END ==
LOC: M LAB REF 16:30
PROVIDERS: ATTEND Nurse Practitioner Family
DX: E11.8 Type 2 diabetes mellitus with unspecified complications (principal)